=== PATIENT | female | born 1965 | race Caucasian/White ===

== ENCOUNTER 2016-09-17 01:07 | Observation (INO) | payer OTHER ==
--- NOTE | 2016-09-17 01:27 | EDPHY ---
H & P Stated Complaint: right elbow pain/swelling HPI/ROS: HPI CHIEF COMPLAINT: Right elbow pain, swelling, redness HISTORY OF PRESENT ILLNESS: This patient very pleasant 51-year-old female no significant medical history does not take any daily medications, no history of diabetes or significant skin infection, she presents emergency room by private vehicle with right elbow swelling, redness, warmth, pain. Patient states that she has always had a nodule on her right elbow that at times gives her discomfort however around noon today she noticed her right elbow was getting worsening pain, swelling and warmth. She noticed over the progression of the last 12 hours that the warmth, swelling, redness has progressively gotten worse. She states it has been draining some whitish drainage. Denies fever. But has limited range of motion of the right elbow and pain with range of motion. She cannot fully extend. Denies chest pain or shortness of breath. 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 Exam Constitutional triage nursing summary reviewed, vital signs reviewed, awake/ alert. Eyes normal conjunctivae and sclera, EOMI, PERRLA. HENT normal inspection, atraumatic, moist mucus membranes, no epistaxis, neck supple/ no meningismus, no raccoon eyes. Respiratory clear to auscultation bilaterally, normal breath sounds, no respiratory distress, no wheezing. Cardiovascular rate normal, regular rhythm, no murmur, no edema, distal pulses normal. Gastrointestinal soft, non-tender, no rebound, no guarding, normal bowel sounds, no distension, no pulsatile mass. Genitourinary no CVA tenderness. Musculoskeletal no midline vertebral tenderness, full range of motion, no calf swelling, no tenderness of extremities, no meningismus, good pulses, neurovascularly intact. Skin right elbow: Right arm is neurovascularly intact distally good pulse, warm extremity good cap refill, good radial pulse, however localized to the dorsum of the right elbow over the olecranon or significant swelling, redness, warmth exquisitely tender, no crepitus, no gas visualize, whitish clear fluid draining from the edema, when asked fully extend her elbow unable to do so but get to approximately 160 degrees. Neurologic awake, alert and oriented x 3, AAOx3, moves all 4 extremities equally, motor intact, sensory intact, CN II-XII intact, normal cerebellar, normal vision, normal speech. Psychiatric normal mood/affect. Heme/Lymph/Immune no lymphadenopathy. Differential Diagnosis: Includes but is not limited to in a particular order, right elbow cellulitis, bursitis, septic joint, MRSA infection, strep infection Medical Decision Making: Plan for this patient patient had an x-ray of the right elbow to look for gas, and IV will be established will check blood work including ESR CRP, blood cultures, lactic acid, IV fluids, IV pain medicine morphine has been ordered Zofran for nausea. Will talk to Orthopedics and most likely start broad-spectrum antibiotics Re-evaluation: 0207: IV vancomycin IV Zosyn has been ordered. X-ray has been completed of the right elbow. I spoke with Dr. To with Orthopedics he agrees with this plan of IV antibiotics admission for elbow cellulitis. I did ask about potentially tapping the elbow joint however he states he would not tap the joint this time broad-spectrum antibiotics hospital admission pain control. ED x-ray right elbow: Calcifications extensive right posterior elbow. I do not appreciate gas. X-ray interpreted by myself. Source: Patient - Personal History Current Tetanus/Diphtheria Vaccine: Yes - Medical/Surgical History Hx Asthma: No Hx Chronic Respiratory Disease: No Hx Diabetes: No Hx Cardiac Disease: No Hx Renal Disease: No Hx Cirrhosis: No Hx Alcoholism: No Hx HIV/AIDS: No Hx Splenectomy or Spleen Trauma: No Other PMH: PSHx: L wrist surgery. PMHx: denies - Social History Smoking Status: Never smoked Constitutional: Initial Vital Signs Temperature (C) 37.3 C 09/17/16 01:09 Heart Rate 60 09/17/16 01:09 Respiratory Rate 14 09/17/16 01:09 Blood Pressure 107/51 L 09/17/16 01:09 O2 Sat (%) 96 09/17/16 01:09 O2 Delivery Mode Room Air Allergies/Adverse Reactions: No Known Allergies Allergy (Unverified 09/17/16 01:09) Home Medications: Medication Instructions Recorded Acetaminophen [Tylenol ES 500 mg 500 - 1,000 mg PO Q6HRS PRN #0 tab 09/17/16 (*)] Calcium Carbonate [Oyster Shell 1,500 mg PO DAILY 09/17/16 Calcium 500 mg (*)] Cyanocobalamin [Vitamin B12 (*)] 1,000 mcg PO DAILY 09/17/16 Glucosam/Chondr/Collagn/Hyalur 1 each PO DAILY 09/17/16 [Glucosamine & Chondroitin Cap] Herbals/Supplements -Info Only 1 ea PO DAILY 09/17/16 Ibuprofen [Motrin (*)] 400 mg PO DAILY PRN 09/17/16 Sulfamethox/Tmp 800/160 mg 1 tab PO BID #14 tab 09/17/16 [Bactrim Ds] Medical Decision Making - Data Points Laboratory Results: Laboratory Results 09/17/16 01:56 09/17/16 01:56 Microbiology Results: MICROBIOLOGY 09/17/16 02:09 Blood Blood Culture - Preliminary 09/17/16 01:56 Blood Blood Culture - Preliminary Medications Given: Discontinued Medications Acetaminophen (Tylenol) 500 - 1,000 mg PO Q6HRS PRN PRN Reason: Pain, Mild/Fever, Can Take PO Stop: 03/16/17 03:17 Last Admin: 09/17/16 11:58 Dose: 1,000 mg Sodium Chloride (Ns) 1,000 mls @ 0 mls/hr IV ONCE ONE PRN Reason: Wide Open Stop: 09/17/16 01:36 Last Admin: 09/17/16 01:58 Dose: 1,000 mls Vancomycin/Sodium Chloride (Vancomycin 1 Gm (Premix)) 250 mls @ 250 mls/hr IV EDNOW ONE PRN Reason: Protocol Stop: 09/17/16 02:49 Last Admin: 09/17/16 03:30 Dose: 250 mls Piperacillin/Tazobactam/Dextrose (Zosyn (Premix)) 100 mls @ 200 mls/hr IV EDNOW ONE PRN Reason: Protocol Stop: 09/17/16 02:19 Last Admin: 09/17/16 02:14 Dose: 100 mls Sodium Chloride (Ns) 1,000 mls @ 100 mls/hr IV CONT SUSANNA Stop: 03/16/17 03:29 Last Admin: 09/17/16 04:37 Dose: 1,000 mls Ketorolac Tromethamine (Toradol) 15 mg IVP Q6HRS SUSANNA Stop: 09/22/16 05:59 Last Admin: 09/17/16 11:57 Dose: 15 mg Ketorolac Tromethamine (Toradol) 15 mg IVP EDNOW ONE Stop: 09/17/16 03:16 Last Admin: 09/17/16 03:15 Dose: 15 mg Morphine Sulfate (Morphine) 4 mg IVP EDNOW ONE Stop: 09/17/16 01:36 Last Admin: 09/17/16 01:58 Dose: 4 mg Ondansetron HCl (Zofran) 4 mg IVP EDNOW ONE Stop: 09/17/16 01:36 Last Admin: 09/17/16 01:59 Dose: 4 mg Departure - Departure Disposition: [facility] Inpatient Acute Clinical Impression: Cellulitis of elbow Condition: Fair
[2016-09-17] MEDS ORDERED: ONDANSETRON 4 MG/2 ML VIAL IVP ONE (01:35)
[2016-09-17] MEDS ORDERED: NS 1,000 ML IV ONE (01:35)
[2016-09-17] MEDS ORDERED: PIPERACILLIN/TAZO 4.5 GM/DEX 100 ML IV ONE (01:50)
[2016-09-17] MEDS ORDERED: VANCOMYCIN HCL/NORMAL SALINE 250 ML IV ONE (01:50)
[2016-09-17 02:05] LABS: % IMMATURE GRANULYOCYTES 0.3 % (0.0-1.1); ABSOLUTE IMMATURE GRANULOCYTES 0.03 10^3/uL (0.00-0.10); ADD DIFF? NO; ADD MORPH? NO; ADD SCAN? NO; ATYPICAL LYMPHOCYTE FLAG 0 (0-99); FRAGMENT RBC FLAG 0 (0-99); HEMATOCRIT 37.6 % (38.0-47.0); HEMOGLOBIN 12.8 g/dL (12.6-16.3); LEFT SHIFT FLG 0 (0-99); LIPEMIA HEMOLYSIS FLAG 90 (0-99); MEAN CELL HEMOGLOBIN 34.4 pg (27.9-34.1); MEAN CELL VOLUME 101.1 fL (81.5-99.8); PLATELET CLUMPS FLAG 10 (0-99); PLATELET COUNT 184 10^3/uL (150-400); RED BLOOD CELL COUNT 3.72 10^6/uL (4.18-5.33); RED CELL DISTRIBUTION WIDTH 12.4 % (11.5-15.2)
[2016-09-17 02:17] LABS: SEDIMENTATION RATE 9 MM/HR (0-30)
[2016-09-17 02:28] LABS: ANION GAP 11 mEq/L (8-16); C-REACTIVE PROTEIN < 5.0 mg/L (<10.0); CALCIUM 9.4 mg/dL (8.5-10.4); CARBON DIOXIDE 24 mEq/l (22-31); CHLORIDE 106 mEq/L (97-110); CREATININE 0.8 mg/dL (0.6-1.0); GLOMERULAR FILTRATION RATE > 60; GLUCOSE 131 mg/dL (70-100); POTASSIUM 3.9 mEq/L (3.5-5.2); SODIUM 141 mEq/L (134-144)
[2016-09-17] MEDS ORDERED: KETOROLAC 30 MG/1 ML SDV IVP ONE (03:15)
[2016-09-17] MEDS ORDERED: oxyCODONE IR 5 MG TAB PO PRN (03:18)
[2016-09-17] MEDS ORDERED: HYDROmorphONE/DILAUDID 1 MG/ML SYR IVP PRN (03:18)
[2016-09-17] MEDS ORDERED: ACETAMINOPHEN 500 MG TAB PO PRN (03:18)
[2016-09-17] MEDS ORDERED: ONDANSETRON 4 MG/2 ML VIAL IVP PRN (03:18)
[2016-09-17] MEDS ORDERED: ONDANSETRON DISINTEGRATING 4 MG TAB PO PRN (03:18)
[2016-09-17] MEDS ORDERED: KETOROLAC 15 MG/1 ML SDV ONE (03:19)
[2016-09-17] MEDS ORDERED: NS 1,000 ML IV SCH (03:30)
--- NOTE | 2016-09-17 03:44 | PDGENHP ---
History and Physical - Chief Complaint elbow pain - History of Present Illness Patient is a 51 year old female with no significant pmh who presents to the ED complaining of R elbow pain. Patient states she has had a nodular growth on the extensor surface of her R elbow that has been present for about 1 year. She reports that it has always been mildly tender if leaning on her elbow for long periods of time or when trying to fully extend her arm. However, yesterday at around noon, this nodular area became acutely inflamed, with erythema and swelling, associated with intense pain. She denies any obvious trauma to the area preceding the acute change. Over the course of the day, the area continued to be significantly painful, with increasing swelling and erythema extending proximally and distally along her posterior arm. She tried icing this area, began taking Ibuprofen and tylenol with little improvement in symptoms. She was able to fall asleep after taking a 1/2 tablet of an opioid pain medicine, but then was awoken at 1 am again with intense, sharp, throbbing pain. At this time she also felt a generalized malaise, mild nausea, mild headache associated with the pain, so she decided to come to the ED for further evaluation. Patient denies any history of obvious arthropathies. She is an avid runner and reports some chronic osteoarthritis of her hip and knee joints, but has never been diagnosed with gout/pseudogout/RA before. She does drink about 1 glass of wine nightly with dinner. On arrival to the ED patient is afebrile and hemodynamically stable. Labs revealed mild leukocytosis, normal BMP/electrolytes, negative CRP/ESR. X-ray of the R elbow revealed diffuse deposition along the subcutaneous extensor surface of the elbow, without obvious effusion or signs of osteomyelitis. She was cultured and covered with broad spectrum antibiotics for possible septic arthritis and admitted for further evaluation. History Information - Allergies/Home Medication List Allergies/Adverse Reactions: No Known Allergies Allergy (Unverified 09/17/16 01:09) Home Medications: NK [No Known Home Meds] 09/17/16 [Last Taken Unknown] I have personally reviewed and updated: family history, medical history, social history, surgical history - Past Medical History no pertinent PMH - Surgical History Additional surgical history: L wrist fracture repair - Social History Smoking Status: Never smoked Alcohol Use: Occasionally (1-2 glasses wine per night) Drug Use: None Additional social history: Works in [employer]. Lives with her two teenage children. 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 Review of Systems ROS: 10pt was reviewed & negative except for what was stated in HPI & below Physical Exam Temp Pulse Resp BP Pulse Ox 37.3 C 60 14 107/51 L 96 09/17/16 01:09 09/17/16 01:09 09/17/16 01:09 09/17/16 01:09 09/17/16 01:09 Constitutional: no apparent distress, appears nourished, not in pain Eyes: PERRL, anicteric sclera, EOMI Ears, Nose, Mouth, Throat: moist mucous membranes, hearing normal, ears appear normal, no oral mucosal ulcers Cardiovascular: regular rate and rhythym, no murmur, rub, or gallop, No JVD, No edema Peripheral Pulses: 2+: dorsalis-pedis (R), dorsalis-pedis (L) Respiratory: no respiratory distress, no rales or rhonchi, clear to auscultation Gastrointestinal: normoactive bowel sounds, soft, non-tender abdomen, no palpable masses Genitourinary: no bladder fullness, no bladder tenderness Skin: warm, normal color, other (tender R olecranon bursa with surrounding erythema and edema; neurovascularly intact distally ) Musculoskeletal: full muscle strength, no muscle tenderness, pain with ROM (of R elbow with reduced extension) Neurologic: AAOx3, sensation intact bilaterally, CN II-XII Intact, No weakness, No numbness, No pronator drift, No facial droop Psychiatric: interacting appropriately, not anxious, not encephalopathic, thought process linear Lab Data & Imaging Review 09/17/16 07:07 09/17/16 07:07 WBC 11.30 10^3/uL (3.80-9.50) H 09/17/16 01:56 RBC 3.72 10^6/uL (4.18-5.33) L 09/17/16 01:56 Hgb 12.8 g/dL (12.6-16.3) 09/17/16 01:56 Hct 37.6 % (38.0-47.0) L 09/17/16 01:56 MCV 101.1 fL (81.5-99.8) H 09/17/16 01:56 MCH 34.4 pg (27.9-34.1) H 09/17/16 01:56 MCHC 34.0 g/dL (32.4-36.7) 09/17/16 01:56 RDW 12.4 % (11.5-15.2) 09/17/16 01:56 Plt Count 184 10^3/uL (150-400) 09/17/16 01:56 MPV 11.0 fL (8.7-11.7) 09/17/16 01:56 Neut % (Auto) 83.2 % (39.3-74.2) H 09/17/16 01:56 Lymph % (Auto) 9.6 % (15.0-45.0) L 09/17/16 01:56 Terry % (Auto) 5.3 % (4.5-13.0) 09/17/16 01:56 Eos % (Auto) 1.2 % (0.6-7.6) 09/17/16 01:56 Baso % (Auto) 0.4 % (0.3-1.7) 09/17/16 01:56 Nucleat RBC Rel Count 0.0 % (0.0-0.2) 09/17/16 01:56 Absolute Neuts (auto) 9.40 10^3/uL (1.70-6.50) H 09/17/16 01:56 Absolute Lymphs (auto) 1.08 10^3/uL (1.00-3.00) 09/17/16 01:56 Absolute Monos (auto) 0.60 10^3/uL (0.30-0.80) 09/17/16 01:56 Absolute Eos (auto) 0.14 10^3/uL (0.03-0.40) 09/17/16 01:56 Absolute Basos (auto) 0.05 10^3/uL (0.02-0.10) 09/17/16 01:56 Absolute Nucleated RBC 0.00 10^3/uL (0-0.01) 09/17/16 01:56 Immature Gran % 0.3 % (0.0-1.1) 09/17/16 01:56 Immature Gran # 0.03 10^3/uL (0.00-0.10) 09/17/16 01:56 ESR 9 MM/HR (0-30) 09/17/16 01:56 VBG Lactic Acid 1.3 mmol/L (0.7-2.1) 09/17/16 01:56 Sodium 141 mEq/L (134-144) 09/17/16 01:56 Potassium 3.9 mEq/L (3.5-5.2) 09/17/16 01:56 Chloride 106 mEq/L (97-110) 09/17/16 01:56 Carbon Dioxide 24 mEq/l (22-31) 09/17/16 01:56 Anion Gap 11 mEq/L (8-16) 09/17/16 01:56 BUN 20 mg/dL (7-23) 09/17/16 01:56 Creatinine 0.8 mg/dL (0.6-1.0) 09/17/16 01:56 Estimated GFR > 60 09/17/16 01:56 Glucose 131 mg/dL (70-100) H 09/17/16 01:56 Calcium 9.4 mg/dL (8.5-10.4) 09/17/16 01:56 C-Reactive Protein < 5.0 mg/L (<10.0) 09/17/16 01:56 Visualized and Interpreted imaging results: Yes Interpretation: R elbow: diffuse hyperintensity along extensor aspect of R elbow Assessment & Plan Assessment: Patient is a 51 year old female with no significant pmh who presents to the ED with R elbow pain of 1 day duration. ED evaluation reveals acute tender R elbow with erythema and edema and mild leukocytosis on labs, concerning for possible septic arthritis/bursitis vs acute crystal arthropathy. Plan: # R elbow pain Elbow appears erythematous, edematous and exquisitely tender to palpation of the extensor surface/bursa. Labs reveal mild leukocytosis and x-rays shows diffuse deposition along extensor tendons. Given these findings, differential includes septic arthritis/bursitis, gouty vs pseudogout arthritis, possible acute tendinitis. Patient was cultured and initiated on empiric antibiotic coverage. Orthopedics was also contacted by the ED and will evaluated the patient in the AM. Given the leukocytosis and symptoms of generalized malaise, it is reasonable to continue empiric antibiotic therapy now. - f/u ortho recs regarding need for joint aspiration - check phos, uric acid - tylenol/toradol/oxycodone for pain, IV dilaudid for severe pain - f/u blood cultures - continue vanc empirically - f/u official X-ray read, consider MRI to further assess abnormalities noted # dispo: admit to observation for pain control # gen: NPO DVT ppx: low risk Full code
[2016-09-17] MEDS: KETOROLAC 15 MG/1 ML SDV IVP SCH ×2 (04:43→11:57)
[2016-09-17 07:14] LABS: % IMMATURE GRANULYOCYTES 0.4 % (0.0-1.1); ABSOLUTE IMMATURE GRANULOCYTES 0.03 10^3/uL (0.00-0.10); ADD DIFF? NO; ADD MORPH? NO; ADD SCAN? NO; ATYPICAL LYMPHOCYTE FLAG 0 (0-99); FRAGMENT RBC FLAG 0 (0-99); HEMATOCRIT 35.6 % (38.0-47.0); HEMOGLOBIN 11.9 g/dL (12.6-16.3); LEFT SHIFT FLG 0 (0-99); LIPEMIA HEMOLYSIS FLAG 80 (0-99); MEAN CELL HEMOGLOBIN 34.7 pg (27.9-34.1); MEAN CELL HEMOGLOBIN CONCENTR. 33.4 g/dL (32.4-36.7); MEAN CELL VOLUME 103.8 fL (81.5-99.8); PLATELET CLUMPS FLAG 0 (0-99); PLATELET COUNT 163 10^3/uL (150-400); RED BLOOD CELL COUNT 3.43 10^6/uL (4.18-5.33); RED CELL DISTRIBUTION WIDTH 12.7 % (11.5-15.2)
[2016-09-17 07:25] LABS: INR 1.04 (0.83-1.16); PROTIME(PATIENT) 13.5 SEC (12.0-15.0)
[2016-09-17 07:26] LABS: APTT 30.2 SEC (23.0-38.0)
[2016-09-17 07:45] LABS: ANION GAP 7 mEq/L (8-16); CALCIUM 8.5 mg/dL (8.5-10.4); CARBON DIOXIDE 25 mEq/l (22-31); CHLORIDE 109 mEq/L (97-110); CREATININE 0.8 mg/dL (0.6-1.0); GLOMERULAR FILTRATION RATE > 60; GLUCOSE 97 mg/dL (70-100); POTASSIUM 4.5 mEq/L (3.5-5.2); SODIUM 141 mEq/L (134-144)
--- NOTE | 2016-09-17 09:04 | HOSPPROG ---
Hospitalist Progress Note Assessment/Plan: Patient is a 51 year old female with no significant pmh who presents to the ED with R elbow pain of 1 day duration. ED evaluation reveals acute tender R elbow with erythema and edema and mild leukocytosis on labs, concerning for possible septic arthritis/bursitis vs acute crystal arthropathy. # R elbow pain ortho to see later multiple labs pending ? bursitis vs gout, vs tendinitis vanco Dr Coe and myself evaluated the patient will ask IR to do an ultrasound and drain /fluid to be sent # dispo: obs/ will hopefully dc later today. Subjective: Earline is having ongoing pain at right elbow area. Objective: Vital Signs Temp Pulse Resp BP Pulse Ox 36.6 C 49 L 12 91/52 L 98 09/17/16 07:47 09/17/16 07:47 09/17/16 07:47 09/17/16 07:47 09/17/16 07:47 Laboratory Results 09/17/16 07:07 09/17/16 07:07 09/16/16 09/17/16 09/18/16 05:59 05:59 05:59 Intake Total 1000 Balance 1000 PT 13.5 SEC (12.0-15.0) 09/17/16 07:07 INR 1.04 (0.83-1.16) 09/17/16 07:07 - Physical Exam Constitutional: uncomfortable, No not in pain Eyes: PERRL Ears, Nose, Mouth, Throat: hearing normal Cardiovascular: regular rate and rhythym Respiratory: no respiratory distress Musculoskeletal: other (right elbow red, swollen, boggy, patient has increase difficulty w extending it straight) Neurologic: AAOx3 Psychiatric: interacting appropriately, not anxious ICD10 Worksheet Patient Problems: Problems Problem Status Onset Cellulitis of elbow Acute
[2016-09-17 11:19] VITALS: BP 98/57; PULSE 50; RESP 14; TEMP 98.6; O2SAT 93
[2016-09-17] MEDS ORDERED: BISACODYL 10 MG SUPP PR PRN (12:01)
--- NOTE | 2016-09-17 13:09 | GCON ---
[f rep st] CONSULTATION INFECTIOUS DISEASE CONSULTATION REFERRING PHYSICIAN: Tammi Mccray NP REASON FOR CONSULTATION: Left olecranon septic bursitis with surrounding cellulitis. 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 The patient complai rolo upon presentation of right elbow pain, swelling, and erythema. She notes that she has had chron ically swollen areas around the bursa of her elbows bilaterally for years. She relates, however, ov er the last 2 days that the right elbow bursa has gotten progressively larger and more tender, espec ially over the last 12 hours preceding admission. The patient notes that she had some whitish drain age from the skin area as well. This swelling is painful and has limited her range of motion in the right elbow. She was admitted and started empirically on IV vancomycin and Zosyn. X-ray was obtai rolo of the right elbow, and no bony pathology was seen. Currently, she is resting comfortably in [facility] hospital bed. She still has the same complaints of the right elbow that she did upon admission ap proximately 12 hours ago. PAST MEDICAL HISTORY: Essentially negative. PAST SURGICAL HISTORY: Negative. ANTIBIOTICS: 1. Vancomycin. 2. Zosyn x1. ALLERGIES: No known medical allergies. SOCIAL HISTORY: The patient lives with her teenage children. She is an athlete and runs marathons. 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 No tobacco use. Occasional glasses of wine. No drug use. FAMILY HISTORY: Reviewed, but noncontributory. REVIEW OF SYSTEMS: Other than that detailed above in history of present illness, comprehensive 10-s ystem review is negative. PHYSICAL EXAMINATION: VITAL SIGNS: Temperature maximum is 37.3, temp current is 37.0, heart rate i s 50, respiratory rate is 14, blood pressure is 98/57. GENERAL: The patient is a well-formed, well -nourished, athletic middle-aged female in no acute distress. She is not toxic in appearance. She is alert and oriented x3. She has a pleasant demeanor. HEENT: Normocephalic for age. Atraumatic. No scleral icterus. No oral lesion or drainage from the nares. Eyes, lids, and conjunctivae with in normal limits. Pupils equal, round bilaterally. NECK: Supple. No meningismus. HEART: Regula r rate and rhythm, tending to bradycardic. No significant peripheral edema. SKIN: Warm and dry to the touch. No rash noted. The patient has mild confluent erythema overlying the right elbow. The re is a ballotable area of fluid at the olecranon. This is tender. There is no clear area of egres s of purulence with palpation. MUSCULOSKELETAL: No other muscle belly tenderness is noted. No guido nt line effusion or arthritis is seen. NEURO: Cranial nerves 2-12 seem to be intact. Peripheral s ensation seems intact in the extremities. LABORATORY DATA: CBC dated 09/17/2016: White blood cell count of 8.6, hemoglobin of 11.9, hematocr it of 35.6, and platelet count of 163, differential slightly left-shifted with 78% segmented neutrop hils. Serum chemistries on 09/17/2016 are all within normal limits. Creatinine is 0.8. Microbiologic data: The patient has blood cultures dated 09/17/2016, which are pending. ASSESSMENT: Probable right septic olecranon bursitis. In order to confirm this, I think we need an aspiration of that bursal sac. We will ask Interventional Radiology to aspirate under ultrasound. We will treat going forward under the presumption that this is bacterial and likely due to staphylo cocci. Would be comfortable with her discharging on oral doxycycline 100 mg p.o. until followup wit h me on Monday in clinic. At that point, hopefully we will have culture confirmation and sensiti vity panel. At this level of bursitis, I suspect that surgical drainage or bursectomy is not requir ed. We will re-evaluate that assumption as an outpatient. PLAN: 1. Aspiration right olecranon bursa. Set up fluid for routine culture and Gram stain. 2. Discontinue vancomycin and place on doxycycline 100 mg p.o. b.i.d. 3. Okay for discharge. 4. Follow up in clinic on Monday. /[id number]/MODL
--- NOTE | 2016-09-17 14:50 | GCON ---
[f rep st] CONSULTATION INPATIENT CONSULT REPORT. DATE OF CONSULTATION: 09/17/2016 CURRENT COMPLAINT: Right elbow pain. HISTORY OF PRESENT ILLNESS: The patient is a 51-year-old female who got admitted late last night af ter having increasing pain into her elbow. The ER physician described a serous fluid being able to be extruded from the skin. However, she had no pain to small arcs of motion to the elbow. She was a dmitted for further evaluation. PHYSICAL EXAMINATION: Patient is neurologically intact distally to the radial, median and ulnar ner ves. She has 90 degrees of supination and pronation through the elbow without pain. She has 45-120 degrees of flexion across the elbow before describing pain. She has redness and warmth around the lateral portion of the elbow, but not to the medial portion of the elbow. She has no fever and no s ignificant elevation to her C-reactive protein. ASSESSMENT AND PLAN: The patient is status post right elbow cellulitis. She is to continue with he r antibiotic regimen. She has an ultrasound-guided aspiration scheduled for later today. We will s ee if any purulence is noted from within the elbow joint and whether it needs to be washed out. At this point, secondary to the amount of comfort that she has, the low white count and low C-reactive protein levels, it is unlikely she has a septic joint. I will continue to follow her while she is h ere. /[id number]/MODL
--- NOTE | 2016-09-17 20:06 | GDS ---
[f rep st] DISCHARGE SUMMARY DISCHARGE DIAGNOSES: Left olecranon septic bursitis with surrounding cellulitis. CONSULTATIONS: 1. Dr. Dianna To. 2. Dr. Jared Coe. HISTORY/HOSPITAL COURSE: The patient is a 51-year-old female who was admitted on September 17. She was c omplaining of right elbow pain, swelling and erythema. She noted that she has had some swelling jonas und the elbow for years, but over the last 2 days it has gotten progressively larger and more tender , to the point where she was unable to sleep. She was brought to the ER and admitted. She was star octavio empirically on IV vancomycin and Zosyn. Today, she is to get an aspiration of the right olecran on bursa. She will get a culture and Gram stain performed. She will be discharged on Bactrim DS tw ice daily, and further follow up with Dr. Coe in the outpatient setting. MEDICATIONS AT DISCHARGE: Please see the EMR. CONDITION AT DISCHARGE: Stable. Blood pressure 98/57, heart rate is 50, respiratory rate is 14, O2 sats on room air are 92%, temperature 37 degrees Celsius. DISCHARGE INSTRUCTIONS: 1. To take it easy for the next several days until she sees Dr. Coe. 2. Take Bactrim as prescribed. If she has any allergic reaction, to stop taking. 3. To see Dr. To if any further intervention is needed. /[id number]/MODL
[2016-09-18] MEDS ORDERED: VANCOMYCIN HCL/NORMAL SALINE 250 ML IV SCH (04:00)
[2016-09-18] MEDS ORDERED: NON-FORMULARY NEW DRUG (Glucosam/Chondr/Collagn/Hyalur [Glucosamine & Chondroitin Cap] 1 E PO SCH (09:00)
[2016-09-18] MEDS ORDERED: GLUCOSAMINE/CHONDROITIN CAP PO SCH (09:00)
[2016-09-18] MEDS ORDERED: Herbals/Supplements -Info Only PO SCH (09:00)
[2016-09-18] MEDS ORDERED: CALCIUM CARBONATE 500 MG TAB PO SCH (09:00)
[2016-09-18] MEDS ORDERED: CYANO/VITAMIN B12 1000 MCG TAB PO SCH (09:00)
== END 2016-09-17 16:58 | disposition home or self-care (01) ==
LOC: INTOOBSV 03:02 → F3E 04:00
PROVIDERS: ADMIT Internal Medicine; ATTEND Internal Medicine
PROC: 0M933ZZ Drainage of Right Elbow Bursa and Ligament, Percutaneous Approach (ICD-10-PCS; principal; 2016-09-17)
DX: M70.21 Olecranon bursitis, right elbow (principal); L03.113 Cellulitis of right upper limb
CPT/HCPCS: 20605; 73080; G0378; 96365; J1885; J2405; J2543; J3370

== ENCOUNTER 2016-09-20 13:25 | Emergency (ER) | payer OTHER ==
[2016-09-20 13:32] VITALS: TEMP 98.1
[2016-09-20] MEDS ORDERED: VANCOMYCIN HCL/NORMAL SALINE 250 ML IV ONE (13:51)
--- NOTE | 2016-09-20 13:55 | EDPHY ---
H & P Stated Complaint: r elbow cellulitis/busitis Time Seen by Provider: 09/20/16 13:38 HPI/ROS: CHIEF COMPLAINT: Right elbow pain and swelling HISTORY OF PRESENT ILLNESS: Patient is a 51-year-old female who is sent in from [facility] Dr. Horowitz for MRI of her elbow and initiation of IV vancomycin. She was seen here over the weekend and diagnosed with elbow cellulitis. She had her olecranon bursa tapped by interventional Radiology which came back negative. She was seen by Dr. To from orthopedist. She initially improved on vancomycin and Zosyn. She was discharged home on Bactrim which she has been taking for the last 3 days. Since returning home her symptoms have again worsened. She has not had a fever. She has no pain with flexion extension or rotation of her elbow. She states that her skin feels tight and swollen. No obvious drainage or purulence. She was seen again by Dr. Horowitz in the office today from Infectious Disease who ordered an MRI of her elbow and sent her here for blood work and IV vancomycin. She has a follow-up appointment with her orthopedist at [facility] tomorrow and is not planning to be admitted. REVIEW OF SYSTEMS: Constitutional: denies: chills, fever, recent illness, recent injury EENTM: denies: blurred vision, double vision, nose congestion Respiratory: denies: cough, shortness of breath Cardiac: denies: chest pain, irregular heart rate, lightheadedness, palpitations Gastrointestinal/Abdominal: denies: abdominal pain, diarrhea, nausea, vomiting, blood streaked stools Genitourinary: denies: dysuria, frequency, hematuria, pain Musculoskeletal: denies: joint pain, muscle pain Skin: See HPI Neurological: denies: headache, numbness, paresthesia, tingling, dizziness, weakness Hematologic/Lymphatic: denies: blood clots, easy bleeding, easy bruising Immunologic/allergic: denies: HIV/AIDS, transplant EXAM: GENERAL: Well-appearing, well-nourished and in no acute distress. HEAD: Atraumatic, normocephalic. EYES: Pupils equal round and reactive to light, extraocular movements intact, sclera anicteric, conjunctiva are normal. ENT: TMs normal, nares patent, oropharynx clear without exudates. Moist mucous membranes. NECK: Normal range of motion, supple without lymphadenopathy or JVD. LUNGS: Breath sounds clear to auscultation bilaterally and equal. No wheezes rales or rhonchi. HEART: Regular rate and rhythm without murmurs, rubs or gallops. ABDOMEN: Soft, nontender, normoactive bowel sounds. No guarding, no rebound. No masses appreciated. BACK: No CVA tenderness, no spinal tenderness, step-offs or deformities EXTREMITIES: Mild tenderness to right elbow bursa, no pain with elbow range of motion NEUROLOGICAL: Cranial nerves II through XII grossly intact. Normal speech, normal gait. 5/5 strength, normal movement in all extremities, normal sensation PSYCH: Normal mood, normal affect. SKIN: Right elbow is edematous, erythematous from mid forearm to just proximal to elbow. Source: Patient Exam Limitations: No limitations - Personal History LMP (Females 10-55): Over 28 Days Ago Current Tetanus/Diphtheria Vaccine: Yes - Medical/Surgical History Hx Asthma: No Hx Chronic Respiratory Disease: No Hx Diabetes: No Hx Cardiac Disease: No Hx Renal Disease: No Hx Cirrhosis: No Hx Alcoholism: No Hx HIV/AIDS: No Hx Splenectomy or Spleen Trauma: No Other PMH: PSHx: L wrist surgery/raynauds. PMHx: denies - Family History Significant Family History: No pertinent family hx - Social History Smoking Status: Never smoked Alcohol Use: None Drug Use: None Constitutional: Initial Vital Signs Temperature (C) 36.7 C 09/20/16 13:30 Heart Rate 86 09/20/16 13:30 Respiratory Rate 18 09/20/16 13:30 Blood Pressure 129/73 H 09/20/16 13:30 O2 Sat (%) 94 09/20/16 13:30 O2 Delivery Mode Room Air Allergies/Adverse Reactions: No Known Allergies Allergy (Verified 09/20/16 13:28) Home Medications: Medication Instructions Recorded Acetaminophen [Tylenol ES 500 mg 500 - 1,000 mg PO Q6HRS PRN #0 tab 09/17/16 (*)] Calcium Carbonate [Oyster Shell 1,500 mg PO DAILY 09/17/16 Calcium 500 mg (*)] Cyanocobalamin [Vitamin B12 (*)] 1,000 mcg PO DAILY 09/17/16 Glucosam/Chondr/Collagn/Hyalur 1 each PO DAILY 09/17/16 [Glucosamine & Chondroitin Cap] Herbals/Supplements -Info Only 1 ea PO DAILY 09/17/16 Ibuprofen [Motrin (*)] 400 mg PO DAILY PRN 09/17/16 Sulfamethox/Tmp 800/160 mg 1 tab PO BID #14 tab 09/17/16 [Bactrim Ds] Medical Decision Making - Diagnostics Imaging: Discussed imaging studies w/ [facility] Radiologist ED Course/Re-evaluation: 5:30 p.m. we discussed the test results. I consulted Dr. Fernandez from Orthopedics here. He recommends follow up with the [facility] doctor tomorrow as previously planned and continue IV antibiotics. He does not see a need for surgical intervention this time. Spoke with the patient who is happy with this plan. 5:45 p.m. I discussed the case with [facility]. They are unable to perform outpatient IV antibiotics. They recommend she come back to the ER either here or there for the next 2 doses until her orthopedist appointment on . Differential Diagnosis: Partial list of the Differential diagnosis considered include but were not limited to; cellulitis, bursitis, septic joint and although unlikely based on the history and physical exam, I also considered sepsis, endocarditis. I discussed these differential diagnoses and the plan with the patient as well as the usual and expected course. The patient understands that the diagnosis is provisional and that in medicine we are not always correct and that further workup is often warranted. Usual and customary warnings were given. All of the patient's questions were answered. The patient was instructed to return to the emergency department should the symptoms at all worsen or return, otherwise to followup with the physician as we discussed. - Data Points Laboratory Results: Laboratory Results 09/20/16 14:10 09/20/16 14:10 Medications Given: Discontinued Medications Vancomycin/Sodium Chloride (Vancomycin 1 Gm (Premix)) 250 mls @ 250 mls/hr IV EDNOW ONE PRN Reason: Protocol Stop: 09/20/16 14:50 Last Admin: 09/20/16 14:18 Dose: 250 mls Ibuprofen (Motrin) 800 mg PO EDNOW ONE Stop: 09/20/16 17:27 Last Admin: 09/20/16 17:42 Dose: 800 mg Departure - Departure Disposition: Home, Routine, Self-Care Clinical Impression: Bursitis Qualifiers: Bursitis location: elbow Elbow bursitis location: olecranon bursitis Laterality : right Qualified Code(s): M70.21 - Olecranon bursitis, right elbow Condition: Fair Instructions: Elbow Bursitis (ED) Additional Instructions: Return either here or to [facility] ER in 12 hours for another dose of vancomycin. Referrals: MESHA BENEDICT [Other] - As per Instructions
[2016-09-20 14:24] LABS: % IMMATURE GRANULYOCYTES 0.3 % (0.0-1.1); ABSOLUTE IMMATURE GRANULOCYTES 0.02 10^3/uL (0.00-0.10); ADD DIFF? NO; ADD MORPH? NO; ADD SCAN? NO; ATYPICAL LYMPHOCYTE FLAG 20 (0-99); FRAGMENT RBC FLAG 0 (0-99); HEMATOCRIT 37.1 % (38.0-47.0); HEMOGLOBIN 12.4 g/dL (12.6-16.3); LEFT SHIFT FLG 0 (0-99); LIPEMIA HEMOLYSIS FLAG 80 (0-99); MEAN CELL HEMOGLOBIN 34.3 pg (27.9-34.1); MEAN CELL HEMOGLOBIN CONCENTR. 33.4 g/dL (32.4-36.7); MEAN CELL VOLUME 102.5 fL (81.5-99.8); MEAN PLATELET VOLUME 11.6 fL (8.7-11.7); PLATELET CLUMPS FLAG 10 (0-99); PLATELET COUNT 192 10^3/uL (150-400); RED BLOOD CELL COUNT 3.62 10^6/uL (4.18-5.33); RED CELL DISTRIBUTION WIDTH 12.3 % (11.5-15.2)
[2016-09-20 14:39] LABS: INR 0.95 (0.83-1.16); PROTIME(PATIENT) 12.6 SEC (12.0-15.0)
[2016-09-20 14:40] LABS: APTT 30.5 SEC (23.0-38.0)
[2016-09-20 14:43] LABS: ALANINE AMINOTRANSFERASE 95 IU/L (9-52); ALBUMIN 4.6 g/dL (3.5-5.0); ALKALINE PHOSPHATASE 112 IU/L (38-126); ANION GAP 12 mEq/L (8-16); ASPARTATE AMINOTRANSFERASE 61 IU/L (14-46); BILIRUBIN,TOTAL 0.8 mg/dL (0.1-1.4); BILIRUBIN-CONJUGATED 0.4 mg/dL (0.0-0.5); BILIRUBIN-UNCONJUGATED 0.4 mg/dL (0.0-1.1); C-REACTIVE PROTEIN 54.5 mg/L (<10.0); CALCIUM 9.7 mg/dL (8.5-10.4); CARBON DIOXIDE 26 mEq/l (22-31); CHLORIDE 100 mEq/L (97-110); CREATININE 0.7 mg/dL (0.6-1.0); GLOMERULAR FILTRATION RATE > 60; GLUCOSE 83 mg/dL (70-100); POTASSIUM 4.1 mEq/L (3.5-5.2); SODIUM 138 mEq/L (134-144); TOTAL PROTEIN 7.7 g/dL (6.3-8.2)
[2016-09-20 14:56] LABS: SEDIMENTATION RATE 47 MM/HR (0-30)
[2016-09-20] MEDS ORDERED: GADOBUTROL 10 ML VIAL IVP ONE (15:45)
[2016-09-20 17:04] VITALS: RESP 16
[2016-09-20] MEDS ORDERED: IBUPROFEN 200 MG TAB PO ONE ×2 (17:26→17:34)
[2016-09-20 17:48] VITALS: BP 128/84; PULSE 78; O2SAT 98
== END 2016-09-20 17:49 | disposition home or self-care (01) ==
DX: M70.21 Olecranon bursitis, right elbow (principal)
CPT/HCPCS: 96365; A9585; J3370

== ENCOUNTER 2016-09-21 08:55 | Emergency (ER) | payer OTHER ==
[2016-09-21 09:00] VITALS: RESP 16; TEMP 98.1
--- NOTE | 2016-09-21 09:49 | EDPHY ---
H & P Time Seen by Provider: 09/21/16 09:12 HPI/ROS: CHIEF COMPLAINT: Cellulitis right elbow HISTORY OF PRESENT ILLNESS: 51-year-old female presents to the emergency department by private vehicle ongoing infection to her right elbow. The patient was initially seen in the emergency department on September 17, 2016 and was admitted to the hospital for cellulitis of her right elbow. She was seen by infectious disease and started on doxycycline after initially receiving initial dose of vancomycin. She was taking doxycycline until yesterday when she saw infectious disease, Dr. Yahir Horowitz, recommended that she come to the emergency department for MRI. She had an MRI of her right elbow which revealed no bone involvement. It appeared soft tissue infection and cellulitis. She was given 1 g of vancomycin IV yesterday afternoon and told to return today for repeat dose of IV antibiotics. She has a scheduled appointment with [place] orthopedic physician tomorrow morning. The patient still complains of ongoing pain and swelling. She states that she iced her right elbow all night long and feels that the pain is a bit better today. She has no fevers or chills. She has no pain in her right axilla. She has no pain in her right wrist. No chest pain or difficulty breathing. ROS: Denies fevers, chills, lymphangitic streaking, right axilla pain. Past Medical/Surgical History: Left wrist surgery, Raynaud's Social History: and lives in [place] Smoking Status: Never smoked Physical Exam: Examination of the right elbow reveals redness and warmth noted to the right elbow. It is tender to palpate. Full range of motion of the right elbow. No evidence of septic joint. There is a small pustule noted over the olecranon. There is fluctuance and some induration. With just gentle pressure I was able to express more purulent drainage. There is no lymphangitis. There is no palpable right axillary lymphadenopathy. Full range of motion of the right wrist. She does have a healing abrasion to the dorsal, volar aspect of the right wrist. Normal sensation to light touch with normal 2 point discrimination. Strong radial pulse at the right wrist. Constitutional: Initial Vital Signs Temperature (C) 36.7 C 09/21/16 08:58 Heart Rate 74 09/21/16 08:58 Respiratory Rate 16 09/21/16 08:58 Blood Pressure 97/63 L 09/21/16 08:58 O2 Sat (%) 93 09/21/16 08:58 O2 Delivery Mode Room Air Allergies/Adverse Reactions: No Known Allergies Allergy (Verified 09/21/16 08:57) Home Medications: Medication Instructions Recorded Acetaminophen [Tylenol ES 500 mg 500 - 1,000 mg PO Q6HRS PRN #0 tab 09/17/16 (*)] Calcium Carbonate [Oyster Shell 1,500 mg PO DAILY 09/17/16 Calcium 500 mg (*)] Cyanocobalamin [Vitamin B12 (*)] 1,000 mcg PO DAILY 09/17/16 Glucosam/Chondr/Collagn/Hyalur 1 each PO DAILY 09/17/16 [Glucosamine & Chondroitin Cap] Herbals/Supplements -Info Only 1 ea PO DAILY 09/17/16 Ibuprofen [Motrin (*)] 400 mg PO DAILY PRN 09/17/16 Cephalexin [Keflex] 500 mg PO QID #28 cap 09/21/16 Vancomycin 09/21/16 MDM/Departure - MDM Procedures: Procedure: Abscess drainage. The patient's abscess was located on the right elbow. Risks, benefits, alternatives discussed with the patient and consent obtained. The abscess was incised with a #11 blade and purulent drainage was expressed. Wound culture obtained. The patient tolerated the procedure well. The procedure was performed by myself. ED Course/Re-evaluation: 51-year-old female presents to the emergency department with ongoing cellulitis to right elbow. The patient had a large amount of purulent material which was expressed from the right elbow. Culture was obtained. Looking back at her previous visits, she never had positive MRI say. I doubt this patient has any kind of septic arthritis. Patient does have redness and warmth an ongoing cellulitis. I did speak with Dr. Yessi Landeros who was on-call for Infectious Disease. She recommended giving the patient 1 g of ceftriaxone IV now and then starting her on oral Keflex tomorrow. I encouraged her to keep her scheduled appointment with her orthopedic surgeon with [place] tomorrow. I do not think further vancomycin is needed. I did discuss this with Dr. Yessi Landeros. I did obtain a wound culture from the purulent material that was drained from her right elbow and she will call for the results of this in 48 hours. - Depart Disposition: Home, Routine, Self-Care Clinical Impression: Cellulitis of elbow, Abscess of bursa, right elbow Condition: Good Instructions: Cellulitis (ED), Abscess (ED) Additional Instructions: Keflex 500 mg 4 times daily for 7 days that you may start tomorrow. Your given IV ceftriaxone 1 g in the emergency department after we spoke with Infectious Disease. Please call [phone] for the results of your wound culture in 48 hours. Keep scheduled appointment with the orthopedic physician tomorrow morning. Return to the emergency department if he developed fever, red streaking up your arm, or if you feel worse in any way. Soak your elbow in warm water for 15-20 minutes ideally at least 3 or 4 times today and tomorrow. After soaking or elbow, pat it dry, and apply antibiotic ointment. Ibuprofen 400 mg every 8 hours as needed for pain. Prescriptions: Cephalexin [Keflex] 500 mg PO QID #28 cap Referrals: MARVIN FORREST [Primary Care Provider] - As per Instructions
[2016-09-21 11:08] VITALS: BP 108/53; PULSE 69; O2SAT 96
== END 2016-09-21 11:19 | disposition home or self-care (01) ==
PROC: 0J9G0ZZ Drainage of Right Lower Arm Subcutaneous Tissue and Fascia, Open Approach (ICD-10-PCS; principal; 2016-09-21)
DX: L03.113 Cellulitis of right upper limb (principal); M71.021 Abscess of bursa, right elbow
CPT/HCPCS: 96365; J0696